=== PATIENT | male | born 1965 | race Two or more races ===

== ENCOUNTER 2020-06-09 14:45 | Outpatient (CLI) | payer OTHER | END 2020-06-09 15:00 | disposition home or self-care (01) | LOC: OFIC 805 14:45 | PROVIDERS: ATTEND Otolaryngology Otology & Neurotology | DX: H71.92 Unspecified cholesteatoma, left ear (principal); H90.12 Conductive hearing loss, unilateral, left ear, with unrestricted hearing on the contralateral side; H72.92 Unspecified perforation of tympanic membrane, left ear ==

== ENCOUNTER → 2020-07-11 | Outpatient (CLI) | payer OTHER | END | disposition home or self-care (01) | LOC: OFIC 805 13:00 | PROVIDERS: ATTEND Otolaryngology Otology & Neurotology | DX: H71.92 Unspecified cholesteatoma, left ear (principal); H90.12 Conductive hearing loss, unilateral, left ear, with unrestricted hearing on the contralateral side; H72.92 Unspecified perforation of tympanic membrane, left ear ==

== ENCOUNTER 2021-01-20 13:08 | Outpatient (CLI) | payer OTHER | END 2021-01-20 13:45 | disposition home or self-care (01) | LOC: OFIC 805 13:08 | PROVIDERS: ATTEND Otolaryngology Otology & Neurotology | DX: H71.92 Unspecified cholesteatoma, left ear (principal); H90.12 Conductive hearing loss, unilateral, left ear, with unrestricted hearing on the contralateral side; H72.92 Unspecified perforation of tympanic membrane, left ear; H61.22 Impacted cerumen, left ear ==